=== PATIENT | male | born 1990 | race Caucasian/White ===

== ENCOUNTER 2018-01-05 20:01 | Emergency (ER) | payer BC, SELFPAY ==
[2018-01-05 20:03] VITALS: BP 143/103; PULSE 129; RESP 24; TEMP 36.8; O2SAT 94; BMI 20.7
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
[2018-01-05] MEDS: HYDROcodone Bitartrate/Apap 5/325 Tablet PO (21:27)
[2018-01-05 22:09] VITALS: PULSE 88; RESP 18; O2SAT 98
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
== END 2018-01-05 23:31 | disposition home or self-care (01) ==
PROVIDERS: Emergency Provider Emergency Medicine
DX: S20.212A Contusion of left front wall of thorax, initial encounter (principal); V86.99XA Unspecified occupant of other special all-terrain or other off-road motor vehicle injured in nontraffic accident, initial encounter; Y93.9 Activity, unspecified; Y92.9 Unspecified place or not applicable
CPT/HCPCS: 71250; 99283

== ENCOUNTER 2019-12-01 06:59 | Emergency (ER) | payer SELFPAY ==
[2019-12-01 07:04] VITALS: BP 155/98; PULSE 65; RESP 18; TEMP 36.9; O2SAT 97; BMI 22.4
--- NOTE | 2019-12-01 07:35 | ED.VISSUMM ---
- ER Visit Summary Date of Service: 12/01/19 Chief Complaint: Right eye foreign body History of Present Illness: The patient is a 29 M who believes he has a contact lens in his right eye. Is been there since last night. He feels like a foreign body sensation is in the right eye. He has had some right periorbital swelling. He has a lot of pain. He states that he never sought come out of his eye. Physical Examination: Vital signs are reviewed. HEENT exam reveals right periorbital swelling. He has diffuse injection of the right eye. On visual inspection no foreign body can be seen. His pupils are equal. His extract emotions are intact without pain. Of his exam is unremarkable Test Results: None performed Emergency Department Course and Treatment: I instilled tetracaine in the right eye. I everted the right eyelid and I still did not see a foreign body. I spoke with Dr. Watkins from ophthalmology. He would like to see the patient in his office after discharge from here. The patient will be discharged to go to the ophthalmology center to see the environmental consultant for foreign body removal Treatment Plan: [] Disposition: Discharge Impression: Right eye foreign body This note was generated with [employer] dictation software. It may contain incorrect words, spelling, and punctuation that were not noted in review of the chart prior to signing ED Disposition - Plan for ED Patient: Disposition: Home or Assisted Living Instructions: ED EYE FOREIGN BODY Corneal Referrals: Junito Watkins MD [STAFF PHYSICIAN] -
[2019-12-01] MEDS: Tetracaine 0.5% Ophthalmic Bottle 1 DRP RIGHT EYE (07:42)
== END 2019-12-01 07:46 | disposition home or self-care (01) ==
PROVIDERS: Emergency Provider Emergency Medicine
DX: T15.91XA Foreign body on external eye, part unspecified, right eye, initial encounter (principal); X58.XXXA Exposure to other specified factors, initial encounter; Y93.9 Activity, unspecified; Y92.9 Unspecified place or not applicable
CPT/HCPCS: 99282

== ENCOUNTER 2020-06-10 18:26 | Emergency (ER) | payer SELFPAY ==
[2020-06-10 18:30] VITALS: BP 129/96; PULSE 130; RESP 18; TEMP 36.1; O2SAT 100; BMI 23.7
[2020-06-10 18:32] VITALS: BP 129/96; PULSE 127; RESP 18; TEMP 36.1; O2SAT 100
--- NOTE | 2020-06-10 18:50 | ED.VIS.GEN ---
History of Present Illness Chief Complaint: Lower Extremity Injury Informant: Patient Onset: Month(s) Context: Sudden Onset Timing: Continuous Quality: Pain Location: Right groin area proximity of insertion site rectus femoris Current Severity: Mild Maximum Severity: Severe Worsened by: Movement Relieved by: Nothing Associated Symptoms: No paresthesia, anesthesia motor aches. No urologic symptoms. See HPI Narrative: Patient is a 29-year-old male presents with atraumatic right groin pain. The start a month ago. The recalls no injury. He denies paresthesia, anesthesia medics. Denies fever or chills. Denies weight gain or weight loss. Denies night sweats. He denies injury in the past. Movement exacerbates his pain. He denies urologic symptoms. He denies mass or fullness in the area. He denies discoloration of his skin. Prior similar symptoms: No Recent Illness/Hospitalization: No - Past Medical History (1) No significant past medical history Status: Acute Past Medical History - Allergies and Home Meds Allergies/Adverse Reactions: Allergies No Known Allergies Allergy (Verified 01/05/18 20:02) Primary Care Physician: Care Physician,No Primary [Primary Care Provider] - Past Medical History: None Surgical History: no surgical history Lives: Alone Smoking Status: Former smoker Alcohol: Rare Drugs: None Review of Systems General: Denies: Chills, Fever, Malaise, Subjective, Sweats, Weight loss Gastrointestinal: Denies: Nausea, Vomiting Genitourinary: Denies: Dysuria, Hematuria, Frequency Musculoskeletal: Reports: Extremity Pain. Denies: Myalgias, Arthralgias, Neck pain, Back pain, Swelling, - Skin: Denies: Rash, Wounds Neurological: Denies: Weakness, Parasthesia, Numbness Hematologic: Denies: Easy bruising, Easy bleeding Physical Exam Vital Signs/Narrative: Vital Signs Temp Pulse Resp BP Pulse Ox 06/10/20 18:32 97.0 F L 127 H 18 129/96 H 100 06/10/20 18:30 97.0 F L 130 H 18 129/96 H 100 Inital Vital Signs reviewed: Yes General: Well nourished, Well developed, No Acute Distress Head: Normocephalic, Atraumatic Eyes: Perrl, EOMI. Negative for: Pale conjunctiva, Scleral icterus Cardiovascular: Regular rate, Regular rhythm Respiratory: No distress Abdomen: Soft, Nontender, Nondistended, Normal bowel sounds Back: Nontender, Normal Inspection Extremities: No edema, Tenderness - Simba insertion site of the rectus femoris., - - There is no inguinal lymphadenopathy. Skin: Normal color, No rash Neurological: Alert, Oriented x3, Cranial nerves II-XII grossly intact, Normal Strength, Normal Sensation Psychological: Normal affect Diagnostic/Tx/Re-eval Chest X-Ray - ED: Read by ED Physician, - - View x-ray of the right hip reveals no acute process. The x-ray was interpreted by me at 1929. - Medical Decision Making Patient has pain ovation and some slight of the rectus femoris. This may represent tendinitis. Need to evaluate for avulsion type fracture with nonunion versus delayed healing. Patient is to anti-inflammatory since he has no contraindication. Graph patient has a ride home. He received a Switchback tablet prior to discharge. ED Disposition - Plan for ED Patient: Disposition: Home or Assisted Living Diagnosis: Tendinitis Instructions: ED Tendonitis Prescriptions: Naproxen [Naprosyn] 500 mg PO BID #14 tab Prescription Printed Referrals: Care Physician,No Primary [Primary Care Provider] - Kaye Cochran [NON-STAFF] - 1 Week if not improving Additional Instructions: 1. Apply ice 20 to 30 minutes per application 6-8 times a day. 2. Take medication until gone 3. If you have no improvement follow-up at the [facility]
[2020-06-10] MEDS: Naproxen 500 MG Tablet PO (18:53)
--- NOTE | 2020-06-10 18:58 | RAD_ITS ---
STUDY: X-RAY - PELVIS AND RIGHT HIP REASON FOR EXAM: Male, 29 years old. NO KNOWN INJURY. PAIN X 1 MONTH ANTERIOR RT HIP /GROIN TECHNIQUE: 3 views of the pelvis and hip. COMPARISON: None. FINDINGS: There is a non-specific bowel gas pattern. Normal visualized soft tissue structures. Normal bilateral iliac wings, sacroiliac joints and visualized sacrum. Normal bilateral superior and inferior pubic rami. Normal pubic symphysis. Normal bilateral ischial tuberosities. Normal visualized femoral head. Normal acetabulum. Normal hip joint. RAD/HIP, UNI W/ Pelvis 2-3 Views IMPRESSION: Normal x-ray examination of the pelvis and hip. Electronically Signed: Amina Bhakta MD at 19:36 EST , Service support ,
[2020-06-10] MEDS: predniSONE 20 MG Tablet 40 MG PO (20:12)
[2020-06-10] MEDS: HYDROcodone Bitartrate/Apap 5/325 Tablet PO (20:12)
[2020-06-10 20:14] VITALS: RESP 18
== END 2020-06-10 20:14 | disposition home or self-care (01) ==
PROVIDERS: Emergency Provider Emergency Medicine
DX: M76.891 Other specified enthesopathies of right lower limb, excluding foot (principal); Z87.891 Personal history of nicotine dependence
CPT/HCPCS: 73502; 99283

== ENCOUNTER 2020-09-28 12:50 | Emergency (ER) | payer SELFPAY ==
[2020-09-28 12:51] VITALS: BP 126/97; PULSE 111; RESP 16; TEMP 36.6; O2SAT 98; BMI 22.8
--- NOTE | 2020-09-28 13:05 | ED.VIS.GEN ---
History of Present Illness Chief Complaint: Lower Extremity Injury Detail of Chief Complaint: Right proximal thigh/pelvic pain Informant: Patient Onset: Days - Injury occurred Monday evening Context: Sudden Onset Timing: Continuous Quality: Pain Location: Pelvis insertion site of the abductor longus tendon Current Severity: Mild Maximum Severity: Severe Worsened by: Initiation of walking Relieved by: Nothing Associated Symptoms: Nothing else Narrative: Patient 30-year-old male who was cleaning out his garage. He tripped. He presents because of pain medial proximal anterior right thigh/pelvis. He denies urologic symptoms. He denies constitutional symptoms. He denies paresthesia, anesthesia motor weakness. He denies direct trauma. He reports similar presentation in June. Prior similar symptoms: Yes Recent Illness/Hospitalization: Yes - June - Past Medical History (1) No significant past medical history Status: Acute Past Medical History - Allergies and Home Meds Allergies/Adverse Reactions: Allergies No Known Allergies Allergy (Verified 09/28/20 12:53) Primary Care Physician: Care Physician,No Primary [Primary Care Provider] - Prior records reviewed: Yes Surgical History: no surgical history Lives: Alone Smoking Status: Former smoker Alcohol: Rare Drugs: None Review of Systems General: Denies: Chills, Fever, Malaise Gastrointestinal: Denies: Abdominal pain, Nausea, Vomiting Genitourinary: Denies: Dysuria, Hematuria, Frequency Musculoskeletal: Reports: Extremity Pain. Denies: Myalgias, Arthralgias, Neck pain, Back pain, Swelling Skin: Denies: Rash, Wounds Neurological: Denies: Weakness, Parasthesia, Numbness Physical Exam Vital Signs/Narrative: Vital Signs Temp Pulse Resp BP Pulse Ox 09/28/20 12:51 97.9 F 111 H 16 126/97 H 98 Inital Vital Signs reviewed: Yes General: Well nourished, Well developed, No Acute Distress Head: Normocephalic, Atraumatic Eyes: Perrl, EOMI. Negative for: Pale conjunctiva, Scleral icterus Cardiovascular: Regular rate, Regular rhythm Respiratory: No distress : - - Is no evidence of inguinal or femoral hernia. There is no inguinal lymphadenopathy. Extremities: No edema, Tenderness - Tenderness insertion site of the abductor longus tendon.. Negative for: Nontender Skin: Normal color, No rash Neurological: Alert, Oriented x3, Cranial nerves II-XII grossly intact, Normal Strength, Normal Sensation. Negative for: Normal Gait Psychological: Normal affect Diagnostic/Tx/Re-eval Chest X-Ray - ED: 1 View, Read by ED Physician, Normal, Bony Structures, No Acute Disease, - - Pelvic x-ray was interpreted by me at 1323. There is no abnormality and specifically no pull off fracture noted. 09/28/20 13:10 Pelvis 1 or 2 Views [RAD] Stat - Medical Decision Making Patient has injury of the adductor longus tendon/muscle. X-ray was obtained to rule out associated patella fracture ED Disposition - Plan for ED Patient: Disposition: Home or Assisted Living Diagnosis: adductor longus tendron sprain Instructions: ED Hip Strain Prescriptions: Naproxen [Naprosyn] 500 mg PO BID #14 tablet Prescription Printed Referrals: Care Physician,Graciela Primary [Primary Care Provider] - Mike Nuñez DO [STAFF PHYSICIAN] - 5-7 Days Additional Instructions: Apply ice to groin 6-8 times a day for 20 to 30 minutes per application Avoid activity that causes discomfort Take medication prescribed as instructed
--- NOTE | 2020-09-28 13:10 | RAD_ITS ---
STUDY: X-RAY - PELVIS REASON FOR EXAM: Male, 30 years old. Injury/Pain following injury. TECHNIQUE: One view of the pelvis was obtained. COMPARISON: Comparison is made with prior study dated 06/10/2020. FINDINGS: There is a non-specific bowel gas pattern. There are calcified phleboliths. Normal bilateral iliac wings, sacroiliac joints and visualized sacrum. Normal visualized bilateral superior and inferior pubic rami. Normal pubic symphysis. Normal ischial tuberosities. Normal visualized right femoral head. Normal right acetabulum. Normal right hip joint. Normal visualized left femoral head. Normal left acetabulum. Normal left hip joint. RAD/Pelvis 1 or 2 Views IMPRESSION: Normal x-ray examination of the pelvis. Electronically Signed: Jimbo Oswald MD at 13:31 EDT , Service support ,
[2020-09-28] MEDS: Naproxen 500 MG Tablet PO (13:24)
== END 2020-09-28 13:47 | disposition home or self-care (01) ==
PROVIDERS: Emergency Provider Emergency Medicine
DX: S76.211A Strain of adductor muscle, fascia and tendon of right thigh, initial encounter (principal); W01.0XXA Fall on same level from slipping, tripping and stumbling without subsequent striking against object, initial encounter; Y93.9 Activity, unspecified; Y92.9 Unspecified place or not applicable; Z87.891 Personal history of nicotine dependence
CPT/HCPCS: 72170; 99283

== ENCOUNTER 2021-08-16 08:13 | Outpatient (CLI) | payer BC, SELFPAY ==
--- NOTE | 2021-08-16 08:32 | EKG12_ITS ---
Test Reason : PRE OP Blood Pressure : / mmHG Vent. Rate : 058 BPM Atrial Rate : 058 BPM P-R Int : 146 ms QRS Dur : 074 ms QT Int : 414 ms P-R-T Axes : 064 035 049 degrees QTc Int : 406 ms Sinus bradycardia with sinus arrhythmia Otherwise normal ECG Confirmed by NAMAN MCCLURE, CHRISTOPHER ([id number]), commercial production editor EDDIE RASHID ([id number]) on 08/16/2021 2:19:52 PM Referred By: Teto Louis Confirmed By:CHRISTOPHER FLORENCE MD
--- NOTE | 2021-08-16 08:32 | RAD_ITS ---
EXAM: XR CHEST, 2 VIEWS : 1990 CLINICAL INDICATION: PRE-OP TECHNIQUE: Frontal and lateral views of the chest. This report was created using [employer] report generation technology. COMPARISON: None. FINDINGS: LUNGS AND PLEURAL SPACES: Unremarkable. No consolidation or edema. No pneumothorax. No effusion. HEART: Unremarkable. Cardiac silhouette not enlarged. MEDIASTINUM: Central airways and mediastinal contour are unremarkable. BONES/JOINTS: Unremarkable. SOFT TISSUES: Unremarkable. RAD/Chest PA and Lateral IMPRESSION: No radiographic evidence of acute cardiopulmonary disease. at 0112 Reported and signed by: Melvin Acuña MD Electronically Signed: Melvin Acuña MD at 1:11 EST ,
[2021-08-16 09:32] LABS: Absolute Lymphocyte Count 1.85 X10^3/uL (0.83-4.51); Absolute Neutrophil Count 4.7 X10^3/uL (2.0-7.7); Basophil# 0.04 X10^3/uL; Basophil% 0.5 % (0-1); Eosinophil# 0.15 X10^3/uL; Hematocrit 47.6 % (40-54); Hemoglobin 16.7 g/dL (13.0-16.5); Lymphocyte # 1.85 X10^3/ul (0.83-4.51); Lymphocyte % 24.5 % (19-41); Mean Corp Hgb Conc 35.1 g/dL (32-36); Mean Corpuscular Hgb 34.1 pg (27.0-32.0); Mean Corpuscular Volume 97.1 fL (80-94); Mean Platelet Vol. 9.9 fl (6.2-12.0); Monocyte# 0.84 X10^3/uL; Monocyte% 11.1 % (0-10); NRBC Flagged by Analyzer 0 % (0-5); Neutrophil # 4.66 X10^3/uL (2.7-7.7); Neutrophil % 61.6 % (47-70); Platelet Count 261 K/mm3 (150-450); RBC Distribution Width CV 11.6 % (11.6-14.6); RBC Distribution Width SD 41.5 fl (35.1-43.9); White Blood Count 7.6 K/mm3 (4.4-11.0)
[2021-08-16 09:53] LABS: Albumin, Serum 4.2 g/dL (3.2-5.0); Anion Gap 6 (5-15); BUN 12 mg/dL (7-18); BUN/Creat Ratio 9.2 RATIO (10-20); Calcium,Total 9.9 mg/dL (8.5-10.1); Chloride 102 mmol/L (98-107); Creatinine, Serum 1.31 mg/dL (0.70-1.30); EST Glomerular Filtration Rate 67 mL/min (>60); Est Glom Filt Rate - Afr Amer 82 mL/min (>60); Glucose 206 mg/dL (74-106); Potassium 3.7 mmol/L (3.5-5.1); Sodium Level 137 mmol/L (136-145)
== END 2021-08-16 23:59 | disposition home or self-care (01) ==
LOC: PSN 08:15
PROVIDERS: Physician Assistant Surgical; Referring Provider Specialist; Visit Provider Specialist
DX: Z01.810 Encounter for preprocedural cardiovascular examination (principal); Z01.818 Encounter for other preprocedural examination; Z01.811 Encounter for preprocedural respiratory examination
CPT/HCPCS: 36415; 71046; 80048; 82040; 85025; 87426; 93005; C9803

== ENCOUNTER 2021-08-20 15:35 | Outpatient (CLI) | payer BC, SELFPAY ==
--- NOTE | 2021-08-19 13:50 | FEM_PTH ---
PATIENT: MARISOL DIXON LOC: [facility] U#:[id number] AGE/SX: 31/M ROOM: RE08/20/[address]: Dr. Teto Louis MD : 1990 BED: DIS: 08/20/2021 SPEC #: [id number] RECD: 08/20/21 15:19 STATUS: RENNY REJason #: [id number] BAHMAN: 08/19/21 13:[address]: Teto Louis DEPT: SURGICAL PATHOLOGY RECD BY: Yas Mccarthy ENTERED: 08/23/21 08:32 SP TYPE: FEM HEAD OTHR DR: No Primary Care Phys [facility] Tissues: Femoral region, NOS Procedures: Decalcification bone/plaque Surgery Specimen Level IV HEADER OPERATION: Right total hip arthroplasty PRE-OP DIAGNOSIS: Severe avascular necrosis right hip TISSUE SUBMITTED: Bone right hip MICROSCOPIC DIAGNOSIS Bone and tissue of right hip, total hip resection: Consistent with avascular necrosis. AM:pratibha 08/26/2021 MICROSCOPIC DESCRIPTION Slides are reviewed. GROSS DESCRIPTION Received is one container labeled with the patient's name and designated bone right hip. The specimen consists of a escalante femoral head measuring 5 x 5 x 4 cm. The articular surface is irregular and the cartilage does not appear to be adherent to the underlying bone in an area measuring 4.5 x 3.5 cm. Machine Assembler sections are submitted in two cassettes after decalcification. / AM:pratibha 08/23/2021 TC:5 [facility]: [id number]
== END 2021-08-20 23:59 | disposition home or self-care (01) ==
LOC: LABSPEC 15:37
PROVIDERS: Visit Provider Specialist
DX: M87.9 Osteonecrosis, unspecified (principal)
CPT/HCPCS: 88305; 88307; 88311

== ENCOUNTER 2021-10-14 20:14 | Emergency (ER) | payer BC, SELFPAY ==
[2021-10-14 20:15] VITALS: BP 165/124; PULSE 96; RESP 12; TEMP 36.4; O2SAT 95; BMI 23.4
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
== END 2021-10-14 20:35 | disposition home or self-care (01) ==
LOC: ED 20:35
PROVIDERS: Emergency Provider Emergency Medicine; Visit Provider Emergency Medicine
DX: R40.20 Unspecified coma (principal); Z72.89 Other problems related to lifestyle; Z87.891 Personal history of nicotine dependence; F12.90 Cannabis use, unspecified, uncomplicated
CPT/HCPCS: 99282